=== PATIENT | male | born 1965 ===

== ENCOUNTER 2017-11-22 13:14 | Emergency (ER) | payer OTHER ==
[2017-11-22 13:17] VITALS: BP 136/83; PULSE 93; RESP 16; TEMP 97.7; O2SAT 99
--- NOTE | 2017-11-22 13:54 | C.PDOC ---
History Of Present Illness 52 year old patient presents to the emergency room with complaints of sudden onset of a"weird sensation in right lower leg" approximately one hour prior to arrival. Patient reports that he was driving one hour before the symptoms started. He denies trauma, swelling, chest pain, shortness of breath, weakness, numbness, and rash. Time Seen by Provider: 11/22/17 13:26 Chief Complaint (Nursing): Lower Extremity Problem/Injury History Per: Patient History/Exam Limitations: no limitations Onset/Duration Of Symptoms: Hrs (1) Past Medical History Vital Signs: Last Vital Signs Temp 97.7 F 11/22/17 13:16 Pulse 93 H 11/22/17 13:16 Resp 16 11/22/17 13:16 BP 136/83 11/22/17 13:16 Pulse Ox 99 11/22/17 14:14 - Medical History PMH: HTN, Hypercholesterolemia, Hypothyroidism Surgical History: No Surg Hx Family History: States: No Known Family Hx - Social History Hx Alcohol Use: No Hx Substance Use: No - Immunization History Hx Tetanus Toxoid Vaccination: No Hx Influenza Vaccination: No Hx Pneumococcal Vaccination: Yes Review Of Systems Except As Marked, All Systems Reviewed And Found Negative. Constitutional: Negative for: Weakness, Other (swelling, trauma) Cardiovascular: Negative for: Chest Pain Respiratory: Negative for: Shortness of Breath Skin: Negative for: Rash Physical Exam - Physical Exam Appears: Well, Non-toxic, No Acute Distress Skin: Normal Color, Warm, Dry, No Rash Head: Atraumatic, Normacephalic Eye(s): bilateral: Normal Inspection, PERRL, EOMI Ear(s): Bilateral: Normal Nose: Normal Oral Mucosa: Moist Throat: Normal Neck: Normal, Normal ROM, Supple Chest: Symmetrical, No Tenderness Cardiovascular: Rhythm Regular, No Friction Rub, No Murmur Respiratory: Normal Breath Sounds Gastrointestinal/Abdominal: Normal Exam, Soft, No Tenderness Back: Normal Inspection, Other (nontender) Extremity: Normal ROM, No Tenderness, Capillary Refill (< 2 sec), No Swelling Extremity: Bilateral: Normal Color And Temperature Pulses: Left Dorsalis Pedis: Normal, Right Dorsalis Pedis: Normal Neurological/Psych: Oriented x3, Normal Speech, Normal Cognition, Normal Motor, Other (steady gait) ED Course And Treatment O2 Sat by Pulse Oximetry: 99 (RA) Pulse Ox Interpretation: Normal Progress Note: Physical exam results normal. Patient prescribed Tylenol 650mg PO and discharged home with instructions. Medical Decision Making Medical Decision Making: Symptoms are most likely related to paresthesias from prolonged sitting. No signs or symptoms to suggest cellulitis, fracture, DVT/coagulopaty. Disposition - Disposition Referrals: Jasmin Valdes MD [Staff Provider] - Disposition: HOME/ ROUTINE Disposition Time: 14:00 Condition: GOOD Additional Instructions: Follow up with the medical doctor/clinic within 1-2 days. Return if worsened. Prescriptions: Acetaminophen [Tylenol] 325 mg PO Q6 PRN #30 tab PRN Reason: Pain, Mild (1-3) Instructions: Paresthesias (DC) Forms: [employer] (Surinamese), Work Excuse - Clinical Impression Clinical Impression: Paresthesia - PA / [place] NURSE / Resident Statement MD/DO has reviewed & agrees with the documentation as recorded. - Scribe Statement The provider has reviewed the documentation as recorded by the Scribe (Don Berry) All medical record entries made by the Scribe were at my direction and personally dictated by me. I have reviewed the chart and agree that the record accurately reflects my personal performance of the history, physical exam, medical decision making, and the department course for this patient. I have also personally directed, reviewed, and agree with the discharge instructions and disposition.
== END 2017-11-22 14:21 | disposition home or self-care (01) ==
LOC: C.ER 13:14
DX: R20.2 Paresthesia of skin (principal)